=== PATIENT | female | born 1955 | race African-American/Black ===

== ENCOUNTER 2017-10-17 09:10 | Emergency (ER) | payer MEDICARE, MEDICAID ==
[~2017-10-17] VITALS: Ht 177.8 cm; Wt 84.0 kg
[2017-10-17] MEDS ORDERED: IBUPROFEN 600MG TABLET PO ONE (11:00)
[2017-10-17 11:18] LABS: BASOPHILS % 1.1 % (0.0-2.0); EOSINOPHILS % 1.4 % (0.0-5.0); HEMATOCRIT. 44.3 % (36.0-48.0); HEMOGLOBIN. 14.6 g/dL (12.0-16.0); LYMPHOCYTES % 37.9 % (20.0-50.0); MEAN CORPUSCULAR VOLUME 84.7 fL (81.0-99.0); MONOCYTES % 5.7 % (2.0-8.0); NEUTROPHILS % 53.9 % (40.0-76.0); PLATELET 213 x1000/uL (130-400); RED BLOOD CELL COUNT 5.23 mill/uL (4.2-5.4); RED CELL DISTRIBUTION WIDTH 14.6 % (11.6-14.6)
[2017-10-17 13:55] VITALS: BP 124/56
== END 2017-10-17 14:45 | disposition home or self-care (01) ==
LOC: ER 09:28
DX: S82.201A Unspecified fracture of shaft of right tibia, initial encounter for closed fracture (principal); M71.21 Synovial cyst of popliteal space [Baker], right knee; V89.2XXA Person injured in unspecified motor-vehicle accident, traffic, initial encounter
CPT/HCPCS: 29505; 36415; 73562; 73700; 85025; 99285